=== PATIENT | female | born 1975 | race Caucasian/White ===

== ENCOUNTER → 2016-11-25 | Outpatient (CLI) | payer BC ==
[2016-11-25 13:38] LABS: URINE APPEARANCE CLEAR (CLEAR); URINE BILIRUBIN NEG (NEG); URINE COLOR YELLOW; URINE EPITHELIAL CELL AUTO >30 /lpf (0-5); URINE NITRITE NEG (NEG); UROBILINOGEN NEG (NEG); ZZUR CULT IF INDIC CLEAN CATCH NO
[2016-11-25 13:43] LABS: MANUAL MICROSCOPIC REQUIRED? NO; REVIEW REQ? NO
[2016-11-25 13:51] LABS: THYROID STIMULATING HORMONE 1.65 uIu/ml (0.300-4.500)
== END | disposition home or self-care (01) ==
LOC: C.LABMFLN 10:17
PROVIDERS: ATTEND Family Medicine
DX: R68.89 Other general symptoms and signs (principal)

== ENCOUNTER → 2016-12-21 | Outpatient (CLI) | payer BC | END | disposition home or self-care (01) | LOC: C.PAPS 14:18 | PROVIDERS: ATTEND Family Medicine | DX: Z12.4 Encounter for screening for malignant neoplasm of cervix (principal) ==

== ENCOUNTER → 2017-02-11 | Outpatient (CLI) | payer BC | END | disposition home or self-care (01) | LOC: C.LABMFLN 12:25 | PROVIDERS: ATTEND Family Medicine | DX: J02.9 Acute pharyngitis, unspecified (principal) ==

== ENCOUNTER → 2017-03-16 | Outpatient (CLI) | payer BC ==
[~2017-03-16] MED LIST: BCPILLS PO; FLUT50SP45 NAE; LTR510 PO; PRT/20 PO
[2017-03-16 14:00] LABS: BLOOD UREA NITROGEN 11 mg/dl (7-18); BUN/CREATININE RATIO 10.7 (10-20); CARBON DIOXIDE 24 mmol/L (21-32); CHLORIDE 104 mmol/L (98-107); GLUCOSE 87 mg/dl (70-99); POTASSIUM 4.1 mmol/L (3.5-5.1); SODIUM 138 mmol/L (136-145)
[2017-03-16 14:22] LABS: CALCIUM 9.2 mg/dl (8.5-10.1)
== END | disposition home or self-care (01) ==
LOC: C.LABMFLN 07:56
PROVIDERS: ATTEND Family Medicine
DX: I10 Essential (primary) hypertension (principal)

== ENCOUNTER 2017-09-11 08:47 | Emergency (ER) | payer OTHER, BC ==
[~2017-09-11] VITALS: Ht 162.6 cm; Wt 102.9 kg
[2017-09-11 08:56] VITALS: TEMP 36.9; Ht 162.6 cm; Wt 102.9 kg
--- NOTE | 2017-09-11 10:01 | DIAGNOSTIC IMAGING REPORT ---
L TIBIA/FIBULA 2 VIEWS ROUTINE CLINICAL HISTORY: Left leg pain status post trauma COMPARISON: None. DISCUSSION: No acute fractures are visualized. There are moderate osteoarthritic changes present within the knee. There is cortical irregularity involving one of the posterior femoral condylar cortices. If there is clinical concern over the presence of an occult distal femoral fracture, a CT scan could be obtained in follow-up. IMPRESSION: 1. No acute fractures of the tibia or fibula 2. Moderate osteophytic changes involving the knee 3. Nonspecific cortical irregularity involving one of the posterior femoral condylar cortices. Electronically signed by: Osmani Johns M.D. 09/11/2017 10:00 AM Dictated Date/Time: 09/11/2017 9:56 AM
[2017-09-11] MEDS ORDERED: BCPILLS PO (10:18)
[2017-09-11] MEDS ORDERED: FLUT50SP45 NAE (10:18)
[2017-09-11] MEDS ORDERED: LTR510 PO (10:18)
[2017-09-11] MEDS ORDERED: PRT/20 PO (10:18)
--- NOTE | 2017-09-11 13:28 | DIAGNOSTIC IMAGING REPORT ---
CT LEFT KNEE NO CONTRAST CT DOSE: 227.42 mGy.cm CLINICAL HISTORY: Left knee pain abnormal conventional radiographic study TECHNIQUE: Helical images were acquired in the transverse plane. Sagittal and coronal reformatted images were acquired. A dose lowering technique was utilized adhering to the principles of ALARA. COMPARISON STUDY: Conventional radiographic study of the left tibia and fibula dated 09/11/2017 FINDINGS: There is a suprapatellar joint effusion. No acute fractures are visualized. There are moderately advanced osteoarthritic changes with marked narrowing of the medial joint compartment and subchondral sclerosis. There is a small intercondylar loose body. There are subchondral cystic changes within the medial aspect of the lateral tibial plateau. There are dorsal patellar spurs. There are no femoral fractures. The cortical irregularity visualized on the recent conventional radiographic study was secondary to superimposition of an osteophyte. IMPRESSION: 1. Moderately advanced osteoarthritic changes with a moderate suprapatellar joint effusion 2. Anterior intercondylar loose body 3. No acute fractures identified Electronically signed by: Osmani Johns M.D. 09/11/2017 1:26 PM Dictated Date/Time: 09/11/2017 1:23 PM
[2017-09-11 14:30] VITALS: BP 110/95; PULSE 89; O2SAT 99
--- NOTE | 2017-09-11 16:59 | EMERGENCY ROOM VISIT NOTE ---
History Report prepared by Eugenia: Chuy Hannah Under the Supervision of: Dr. Rj Sandoval M.D. First contact with patient: 09:32 Chief Complaint: FALL Stated Complaint: CANT WALK.. FELL AT WORK History of Present Illness The patient is a 42 year old female who presents to the Emergency Room with complaints of persistent left leg pain that started yesterday evening after a mechanical fall. The patient says that she was at work yesterday, and fell onto her left knee and right arm on cement. She notes that later that evening, her left lower leg started to stiffen up, and now it is very hard for her to walk after sitting for a while and then getting back up. The patient states that it is hard to walk because it is so painful. She says that her left foot feels fine. She notes that the pain is mostly behind her left knee and in her calf. The patient notes that her only chronic medical problem is hypertension. Pt denies LOC, headache, visual changes, neck pain, chest pain, breathing difficulties, nausea, vomiting, abdominal pain, back pain, numbness, weakness, open wounds, active bleeding, or other complaints. Source of History: patient Onset: Yesterday evening Position: leg (left) Quality: other (after fall) Timing: other (persistent) Note: Associated symptoms: Hard to walk due to pain. No left foot pain. Review of Systems See HPI for pertinent positives and negatives. A total of ten systems were reviewed and were otherwise negative. Past Medical & Surgical Medical Problems: (1) Hypertension Family History No pertinent family history Social History Smoking Status: Never Smoker Marital Status: single Occupation Status: employed Current/Historical Medications Scheduled Amlodipine/Benazepril (Lotrel 5MG/10MG), 1 CAP PO DAILY Control Pills ( Control Pills), 1 TAB PO DAILY Fluticasone Propionate (Nasal) (Allergy Nasal Exline 24 Ho), 1 SPRAY SAM DAILY Pantoprazole (Protonix), 20 MG PO DAILY Allergies Coded Allergies: No Known Allergies (Unverified , 09/11/17) Physical Exam Vital Signs Date Time Temp Pulse Resp B/P (MAP) Pulse Ox O2 Delivery O2 Flow Rate FiO2 09/11/17 14:30 89 16 110/95 99 09/11/17 12:40 76 18 152/98 100 Room Air 09/11/17 10:30 74 20 146/96 100 Room Air 09/11/17 08:56 36.9 88 20 154/91 99 Room Air Physical Exam GENERAL: Awake, alert, well-appearing, in no distress HENT: Normocephalic, atraumatic. Oropharynx unremarkable. EYES: Normal conjunctiva. Sclera non-icteric. NECK: Supple. No nuchal rigidity. FROM. No JVD. RESPIRATORY: Clear to auscultation. CARDIAC: Regular rate, normal rhythm. Extremities warm and well perfused. Pulses equal. ABDOMEN: Soft, non-distended. No tenderness to palpation. No rebound or guarding. No masses. RECTAL: Deferred. MUSCULOSKELETAL: Chest examination reveals no tenderness. The back is symmetrical on inspection without obvious abnormality. There is no CVA tenderness to palpation. No joint edema. LOWER EXTREMITIES: Bruise anterior left [place]. No edema. NEURO: Normal sensorium. No sensory or motor deficits noted. SKIN: No rash or jaundice noted. Medical Decision & Procedures ER Provider Diagnostic Interpretation: Radiology results as stated below per my review and radiologist interpretation: L TIBIA/FIBULA 2 VIEWS ROUTINE CLINICAL HISTORY: Left leg pain status post trauma COMPARISON: None. DISCUSSION: No acute fractures are visualized. There are moderate osteoarthritic changes present within the knee. There is cortical irregularity involving one of the posterior femoral condylar cortices. If there is clinical concern over the presence of an occult distal femoral fracture, a CT scan could be obtained in follow-up. IMPRESSION: 1. No acute fractures of the tibia or fibula 2. Moderate osteophytic changes involving the knee 3. Nonspecific cortical irregularity involving one of the posterior femoral condylar cortices. Electronically signed by: Osmani Johns M.D. 09/11/2017 10:00 AM Dictated Date/Time: 09/11/2017 9:[address] LEFT KNEE NO CONTRAST CT DOSE: 227.42 mGy.cm CLINICAL HISTORY: Left knee pain abnormal conventional radiographic study TECHNIQUE: Helical images were acquired in the transverse plane. Sagittal and coronal reformatted images were acquired. A dose lowering technique was utilized adhering to the principles of ALARA. COMPARISON STUDY: Conventional radiographic study of the left tibia and fibula dated 09/11/2017 FINDINGS: There is a suprapatellar joint effusion. No acute fractures are visualized. There are moderately advanced osteoarthritic changes with marked narrowing of the medial joint compartment and subchondral sclerosis. There is a small intercondylar loose body. There are subchondral cystic changes within the medial aspect of the lateral tibial plateau. There are dorsal patellar spurs. There are no femoral fractures. The cortical irregularity visualized on the recent conventional radiographic study was secondary to superimposition of an osteophyte. IMPRESSION: 1. Moderately advanced osteoarthritic changes with a moderate suprapatellar joint effusion 2. Anterior intercondylar loose body 3. No acute fractures identified Electronically signed by: Osmani Johns M.D. 09/11/2017 1:26 PM Dictated Date/Time: 09/11/2017 1:23 PM ED Course 0940: The patient was evaluated in room C2B. A complete history and physical exam was performed. 1049: I reevaluated and updated the patient. 1345: I reevaluated the patient and she is resting comfortably. Discussed results and discharge instructions: she verbalized understanding and agreement. The patient is ready for discharge. Medical Decision Triage Nursing notes reviewed. The patient's presentation and history were concerning for leg pain. Etiologies such as soft tissue injury, fracture, dislocation, neurovascular compromise, compartment syndrome, as well as others were entertained. The patient was evaluated. Clinically she was doing well. She had no stigmata of DVT. She has a contusion noted. She is having trouble bearing weight but was able to stand. The patient had an x-ray performed. This was noted as above. Radiology recommended CT imaging due to possible cortical irregularity. CT imaging was performed. The patient has a moderate amount of osteoarthritis. There is no evidence of acute injury. I discussed conservative management with the patient appears that she has a contusion from the fall. She will follow-up closely as an outpatient. If she worsens in any way she will be back. By the evaluation outlined above other emergent etiologies such as those listed in the differential, as well as others, were deemed relatively unlikely. The patient was educated about the findings as listed above. All questions were answered and the patient was pleased with the treatment. Return instructions were outlined and the patient was discharged in stable condition. The patient was referred to her PCP for follow-up for a recheck of the current condition. Medication Reconcilliation Current Medication List: was personally reviewed by me Blood Pressure Screening Patient's blood pressure: Elevated blood pressure Blood pressure disposition: Referred to PCP Impression Primary Impression: Left leg pain Additional Impressions: Knee contusion Osteoarthritis Scribe Attestation The scribe's documentation has been prepared under my direction and personally reviewed by me in its entirety. I confirm that the note above accurately reflects all work, treatment, procedures, and medical decision making performed by me. Departure Information Dispostion Home / Self-Care Referrals Vinnie Baldwin M.D. (PCP) Patient Instructions My [facility] Additional Instructions ORTHOPEDIC INSTRUCTIONS: Ibuprofen(Motrin, Advil) may be used for fever or pain. Use 600mg every six hours as needed. Take with food. Avoid using more than 2400mg in a 24 hour period. Do not use 2400mg per day for more than three consecutive days without physician direction. Prolonged inappropriate use can lead to stomach upset or ulcers. (AND/OR) Acetaminophen(Tylenol) may be used for fever or pain. Use 1000mg every six hours as needed. Avoid using more than 4000mg in a 24 hour period. Ice compresses for 20 minutes at a time four times daily for 2-3 days. Rest and elevate your injury. Return to the ER immediately for any numbness, tingling, severe pain, extreme swelling in the extremity or as needed. Follow-up with your family doctor as scheduled. Problem Qualifiers
== END 2017-09-11 14:39 | disposition home or self-care (01) ==
LOC: C.EDB 08:48 → C.EDC 14:39
DX: S80.02XA Contusion of left knee, initial encounter (principal); W19.XXXA Unspecified fall, initial encounter; Y92.89 Other specified places as the place of occurrence of the external cause; Y99.0 Civilian activity done for income or pay; M17.12 Unilateral primary osteoarthritis, left knee; I10 Essential (primary) hypertension; Z79.3 Long term (current) use of hormonal contraceptives; Z79.899 Other long term (current) drug therapy

== ENCOUNTER → 2018-03-20 | Outpatient (CLI) | payer BC ==
[2018-03-20 13:08] LABS: BLOOD UREA NITROGEN 13 mg/dl (7-18); CALCIUM 8.5 mg/dl (8.5-10.1); CARBON DIOXIDE 28 mmol/L (21-32); GLUCOSE 85 mg/dl (70-99); SODIUM 136 mmol/L (136-145)
== END | disposition home or self-care (01) ==
LOC: C.LABMFLN 10:17
PROVIDERS: ATTEND Family Medicine
DX: I10 Essential (primary) hypertension (principal)

== ENCOUNTER → 2018-04-03 | Outpatient (CLI) | payer BC ==
[~2018-04-03] MED LIST changes: +AMLO-710 PO; -LTR510 PO
== END | disposition home or self-care (01) ==
LOC: C.LABMFLN 10:35
PROVIDERS: ATTEND Family Medicine
DX: E87.6 Hypokalemia (principal)